=== PATIENT | female | born 1965 | race Caucasian/White ===

== ENCOUNTER 2016-10-08 20:00 | Observation (INO) | payer BC ==
[2016-10-08] MEDS ORDERED: ASPIRIN 81 MG TABLET, CHEWABLE PO ONE (20:05)
--- NOTE | 2016-10-08 20:09 | ER Document Report ---
ED Medical Screen (RME) - General Stated Complaint: CHEST PAIN Time seen by provider: 20:06 Mode of Arrival: Ambulatory Information source: Patient Notes: 20-year-old nondiabetic, nonhypertensive, non-hyperlipidemic, non-smoker female with left sided retrosternal chest pain that radiates down her left arm and into her left jaw since yesterday morning. It is intermittent. Episodes last 15 or 20 minutes. The pain is worse with exertion or activity. Chest pain is 5 /5 at this time. No fever or chills. Some cough. TRAVEL OUTSIDE OF THE [place] IN LAST 30 DAYS: No - Related Data Allergies/Adverse Reactions: oxycodone HCl [From Percocet] Allergy (Verified 06/18/13 11:48) Past Medical History - Past Medical History Cardiac Medical History: Reports: Hx Hypercholesterolemia Denies: Hx Coronary Artery Disease, Hx Heart Attack, Hx Hypertension Pulmonary Medical History: Reports: Hx Pneumonia - yrs ago Denies: Hx Asthma - being ruled out;may be panic attacks, Hx Bronchitis, Hx COPD Neurological Medical History: Denies: Hx Cerebrovascular Accident, Hx Seizures Renal/ Medical History: Reports: Hx Kidney Stones GI Medical History: Reports: Hx Hiatal Hernia Musculoskeltal Medical History: Reports Hx Arthritis - Knees, hands, feet, neck Past Surgical History: Reports: Hx Hysterectomy - Immunizations Hx Diphtheria, Pertussis, Tetanus Vaccination: Yes
[2016-10-08 21:04] LABS: ABSOLUTE EOSINOPHILS # (AUTO) 0.1 10^3/uL (0.0-0.6); ABSOLUTE LYMPHOCYTES (AUTO) 2.2 10^3/uL (0.5-4.7); ABSOLUTE MONOCYTES (AUTO) 0.7 10^3/uL (0.1-1.4); ABSOLUTE NEUT (AUTO) 4.9 10^3/uL (1.7-8.2); BASOPHILS % (AUTO) 0.3 % (0-2); EOSINOPHILS % (AUTO) 0.7 % (0-6); HEMATOCRIT 36.1 % (36.0-47.0); HGB HCT DIFFERENCE -0.1; LYMPHOCYTES % (AUTO) 27.8 % (13-45); MEAN CORPUSCULAR HEMOGLOBIN 26.7 pg (27.0-33.4); MEAN CORPUSCULAR HGB CONC 33.2 g/dL (32.0-36.0); MEAN CORPUSCULAR VOLUME 81 fl (80-97); MONOCYTES % (AUTO) 8.7 % (3-13); RED BLOOD COUNT 4.48 10^6/uL (3.72-5.28); SEGMENTED NEUTROPHILS % (AUTO) 62.5 % (42-78); WHITE BLOOD COUNT 7.8 10^3/uL (4.0-10.5)
[2016-10-08 21:12] LABS: ALANINE AMINOTRANSFERASE 24 U/L (9-52); ALBUMIN 3.5 g/dL (3.5-5.0); ALKALINE PHOSPHATASE 103 U/L (38-126); ANION GAP 11 (5-19); ASPARTATE AMINO TRANSFERASE 28 U/L (14-36); BILIRUBIN,TOTAL 0.2 mg/dL (0.2-1.3); BLOOD UREA NITROGEN 22 mg/dL (7-20); CALCIUM 9.2 mg/dL (8.4-10.2); CARBON DIOXIDE 26 mmol/L (22-30); CHLORIDE 105 mmol/L (98-107); CREATINE KINASE 128 U/L (30-135); CREATININE RESULT 0.68 mg/dL (0.52-1.25); GLUCOSE 114 mg/dL (75-110); POTASSIUM 3.6 mmol/L (3.6-5.0); SODIUM 142.1 mmol/L (137-145); TOTAL PROTEIN 6.2 g/dL (6.3-8.2)
[2016-10-08 21:20] LABS: CREATINE KINASE MB 1.47 ng/mL (<4.55)
[2016-10-08 21:21] LABS: TROPONIN I < 0.012 ng/mL
--- NOTE | 2016-10-08 22:20 | ER Document Report ---
ED General - General Chief Complaint: Chest Pain Stated Complaint: CHEST PAIN Mode of Arrival: Ambulatory Notes: Patient is 50-year-old female presents for complaint of feeling unwell and having chest pain radiates into her left jaw and into her left shoulder. She also some pain into her left upper abdomen. Some nausea. No vomiting. No fevers. She becomes short of breath when the pain comes about. She says it's worse when she exerts herself. She does not smoke. She does have a family history of coronary disease. She said both her sister and her father had heart attacks. She has no other complaints at this time. No recent traumas or injuries. No recent infections. TRAVEL OUTSIDE OF THE [place] IN LAST 30 DAYS: No - Related Data Allergies/Adverse Reactions: oxycodone HCl [From Percocet] Allergy (Verified 06/18/13 11:48) Past Medical History - General Information source: Patient - Social History Smoking Status: Never Smoker Chew tobacco use (# tins/day): No Frequency of alcohol use: None Drug Abuse: None Family History: Reviewed & Not Pertinent Patient has suicidal ideation: No Patient has homicidal ideation: No - Past Medical History Cardiac Medical History: Reports: Hx Hypercholesterolemia Denies: Hx Coronary Artery Disease, Hx Heart Attack, Hx Hypertension Pulmonary Medical History: Reports: Hx Pneumonia - yrs ago Denies: Hx Asthma - being ruled out;may be panic attacks, Hx Bronchitis, Hx COPD Neurological Medical History: Denies: Hx Cerebrovascular Accident, Hx Seizures Renal/ Medical History: Reports: Hx Kidney Stones GI Medical History: Reports: Hx Hiatal Hernia Musculoskeltal Medical History: Reports Hx Arthritis - Knees, hands, feet, neck Past Surgical History: Reports: Hx Hysterectomy - Immunizations Hx Diphtheria, Pertussis, Tetanus Vaccination: Yes Review of Systems - Review of Systems Notes: My Normal Review Basic REVIEW OF SYSTEMS: CONSTITUTIONAL : Denies fever, chills, or sweats. Denies recent illness. EENT: Denies eye, ear, throat, or mouth pain or symptoms. Denies nasal or sinus congestion. CARDIOVASCULAR: Some chest pain RESPIRATORY: Denies cough, cold, or chest congestion. Denies shortness of breath, difficulty breathing, or wheezing. GASTROINTESTINAL: Mild upper abdominal pain. Denies nausea, vomiting, or diarrhea. Denies constipation. Last BM: MUSCULOSKELETAL: Denies neck or back pain or joint pain or swelling. SKIN: Denies rash or skin lesions. NEUROLOGICAL: Denies altered mental status or loss of consciousness. Denies headache. Denies weakness or paralysis or loss of use of either side. Denies problems with gait or speech. Denies sensory or motor loss. PSYCHIATRIC: History of anxiety but says this feels different than typical panic attack. ALL OTHER SYSTEMS REVIEWED AND NEGATIVE. Physical Exam - Vital signs Vitals: Pulse Ox 100 10/08/16 22:09 - Notes Notes: General Appearance: Well nourished, alert, cooperative, no acute distress, no obvious discomfort. Well-appearing. Vitals: reviewed, See vital signs table. Head: no swelling or tenderness to the head Eyes: PERRL, EOMI, Conjuctiva clear Mouth: No decreasd moisture Lungs: No wheezing, No rales, No rhonci, No accessory muscle use, good air exchange bilaterally. Heart: Normal rate, Regular rythm, No murmur, no rub Abdomen: Normal BS, soft, No rigidity, no reproducible abdominal tenderness with palpation, No guarding, no rebound, no abdominal masses, no organomegaly Extremities: strength 5/5 in all extremities, good pulses in all extremities, no swelling or tenderness in the extremities, no edema. Skin: warm, dry, appropriate color, no rash Neuro: speech clear, oriented x 3, normal affect, responds appropriately to questions. Course - Vital Signs Vital signs: Temp Pulse Resp BP Pulse Ox 15 104/75 98 10/09/16 02:01 10/09/16 02:01 10/09/16 02:01 - Laboratory Result Diagrams: 10/08/16 20:41 10/08/16 20:41 Laboratory results interpreted by me: 10/08/16 10/08/16 20:41 20:41 MCH 26.7 L BUN 22 H Glucose 114 H Total Protein 6.2 L - EKG Interpretation by Me Additional EKG results interpreted by me: 10/08/16 22:19 EKG is reviewed and interpreted by me. EKG shows normal sinus rhythm with rate of [address] segment elevation or depression. No ischemic T wave inversions. LA interval, QRS duration, QTC intervals are within normal range. Old EKG for comparison is from 06/18/2013. - Transfer of Care Notes: 10/09/16 03:07 Patient does have family history of cardiac disease. Her pain is rating to left on left shoulder and is worse with exertion and therefore I do have to be concerned that her pain could be related to coronary disease. Initial cardiac enzymes and EKG are negative. I did speak with the hospitalist who agrees in that the patient. Patient is currently chest pain-free. Patient is agreeable to admission. Dictation of this chart was performed using voice recognition software; therefore, there may be some unintended grammatical errors. Discharge - Discharge Clinical Impression: Chest pain Qualifiers: Chest pain type: unspecified Qualified Code(s): R07.9 - Chest pain, unspecified Disposition: ADMITTED INPATIENT Admitting Provider: Hospitalist Unit Admitted: Telemetry
--- NOTE | 2016-10-08 22:57 | EKG REPORT ---
SEVERITY:- OTHERWISE NORMAL ECG - INCOMPLETE ANALYSIS DUE TO MISSING DATA IN PRECORDIAL LEAD(S) SINUS RHYTHM BORDERLINE LEFT AXIS DEVIATION : Confirmed by: Zeus Montenegro 08-Oct-2016 22:56:58
[2016-10-09] MEDS ORDERED: NITROGLYCERIN 2% OINTMENT 1 GM PACKET TP ONE (00:59)
[2016-10-09] MEDS ORDERED: DIAZEPAM 5 MG TABLET PO PRN (01:55)
[2016-10-09] MEDS ORDERED: NITROGLYCERIN 0.4 MG/TAB 25 TAB/BOTTLE SL PRN (01:55)
[2016-10-09 02:57] LABS: CREATINE KINASE MB 1.18 ng/mL (<4.55)
--- NOTE | 2016-10-09 02:59 | PDOC H&P ---
History of Present Illness Admission Date/PCP: 10/09/16 01:55 MULU CAPUTO MD Patient complains of: Chest pain with radiation to left arm and jaw History of Present Illness: CHIDI CARRION is a 50 year old female with a past medical history of anxiety osteoarthritis on hormone replacement who is in her usual state of health until approximately 72 hours prior to presentation having both sharp and dull pain to the left side of her chest which radiates to both the left jaw and arm and is intermittent in nature associated with opiate rotations, shortness of breath, nausea and vomiting of gastric content though occurring at rest. She is unable to identify alleviating or exacerbating factors she does admit some social stressors but states she is not currently exceptionally stressed and this is inconsistent with previous episode of panic attack. She denies new medications , recent cardiac stress test and is referred to the hospitalist for admission with an otherwise unremarkable workup. Past Medical History Cardiac Medical History: Reports: Hyperlipidema Denies: Coronary Artery Disease, Myocardial Infarction, Hypertension Pulmonary Medical History: Reports: Pneumonia - yrs ago Denies: Asthma - being ruled out;may be panic attacks, Bronchitis, Chronic Obstructive Pulmonary Disease (COPD) Neurological Medical History: Denies: Seizures GI Medical History: Reports: Hiatal Hernia Musculoskeltal Medical History: Reports: Arthritis - Knees, hands, feet, neck Hematology: Reports: Anemia - yrs ago Past Surgical History Past Surgical History: Reports: Hysterectomy Social History Information Source: Patient, Relative Lives with: Family Smoking Status: Never Smoker Frequency of Alcohol Use: None Drugs: None Hx Prescription Drug Abuse: No - Advance Directive Resuscitation Status: Full Code Family History Family History: CAD Parental Family History Reviewed: Yes Children Family History Reviewed: Yes Sibling(s) Family History Reviewed.: Yes Medication/Allergy Home Medications: Estrogens,Conjugated [Premarin 1.25 Mg Tablet] 1.25 mg PO DAILY 09/03/12 Albuterol Sulfate [Ventolin Hfa] 2 puff IH Q4H PRN 11/24/13 Multivitamins with Iron [One Daily Multivitamin] 1 tab PO DAILY 11/24/13 Simvastatin 40 mg PO DAILY 11/24/13 Hydrocodone/Acetaminophen [[place] 5-325 mg Tablet] 1 - 2 tab PO ASDIR #10 tablet 11/12/15 Prednisone [Deltasone 10 mg Tablet] 10 mg PO ASDIR PRN #21 tablet 11/12/15 Allergies/Adverse Reactions: oxycodone HCl [From Percocet] Allergy (Verified 06/18/13 11:48) Review of Systems Constitutional: ABSENT: chills, fever(s), headache(s), weight gain, weight loss Eyes: ABSENT: visual disturbances Ears: ABSENT: hearing changes Cardiovascular: ABSENT: chest pain, dyspnea on exertion, edema, orthropnea, palpitations Respiratory: ABSENT: cough, hemoptysis Gastrointestinal: ABSENT: abdominal pain, constipation, diarrhea, hematemesis, hematochezia, nausea, vomiting Genitourinary: ABSENT: dysuria, hematuria Musculoskeletal: ABSENT: joint swelling Integumentary: ABSENT: rash, wounds Neurological: ABSENT: abnormal gait, abnormal speech, confusion, dizziness, focal weakness, syncope Psychiatric: ABSENT: anxiety, depression, homidical ideation, suicidal ideation Endocrine: ABSENT: cold intolerance, heat intolerance, polydipsia, polyuria Hematologic/Lymphatic: ABSENT: easy bleeding, easy bruising Physical Exam Vital Signs: Temp Pulse Resp BP Pulse Ox 15 104/75 98 10/09/16 02:01 10/09/16 02:01 10/09/16 02:01 General appearance: PRESENT: no acute distress, cooperative, obese Head exam: PRESENT: atraumatic, normocephalic Eye exam: PRESENT: conjunctiva pink, EOMI, PERRLA. ABSENT: scleral icterus Ear exam: PRESENT: normal external ear exam Mouth exam: PRESENT: moist, tongue midline Neck exam: ABSENT: carotid bruit, JVD, lymphadenopathy, thyromegaly Respiratory exam: PRESENT: clear to auscultation anthony. ABSENT: rales, rhonchi, wheezes Cardiovascular exam: PRESENT: RRR, +S1, +S2. ABSENT: diastolic murmur, gallop, rubs, systolic murmur, tachycardia Pulses: PRESENT: normal dorsalis pedis pul GI/Abdominal exam: PRESENT: normal bowel sounds, soft. ABSENT: distended, guarding, mass, organolmegaly, rebound, tenderness Rectal exam: PRESENT: deferred Musculoskeletal exam: PRESENT: other - Pain over left-sided chest which is reproducible but dull in Nature and not the pain for which she seeks evaluation Neurological exam: PRESENT: alert, awake, oriented to person, oriented to place , oriented to time, oriented to situation, CN II-XII grossly intact. ABSENT: motor sensory deficit Psychiatric exam: PRESENT: flat affect Focused psych exam: ABSENT: catatonic, delusional, euphoric, flight of ideas Skin exam: PRESENT: dry, intact, warm. ABSENT: cyanosis, rash Results Impressions: Chest X-Ray 10/08/16 20:06 IMPRESSION: NO ACUTE RADIOGRAPHIC FINDING IN THE CHEST. Assessment & Plan - Diagnosis (1) Chest pain Qualifiers: Chest pain type: unspecified Qualified Code(s): R07.9 - Chest pain, unspecified Is this a current diagnosis for this admission?: YesPlan: Multifactorial Chest pains with atypical features for cardiac origin however she has strong family history, I'll evaluate for acute coronary syndrome and risk factors for coronary artery disease, a Cardiolite stress test and treat symptomatically. (2) Anxiety and depression Is this a current diagnosis for this admission?: YesPlan: Consider SSRI with outpatient mental health follow-up (3) Hormone replacement therapy Is this a current diagnosis for this admission?: YesPlan: Consider discontinuation - Time Time Spent: 30 to 50 Minutes
[2016-10-09 03:02] LABS: TROPONIN I < 0.012 ng/mL
[2016-10-09] MEDS ORDERED: ATORVASTATIN CALCIUM 80 MG TABLET PO ONE (04:30)
[2016-10-09] MEDS: HEPARIN SOD (PORCINE) 5,000 UNIT/ML 1 ML SYRINGE SUBCUT SCH ×3 (07:49→21:09)
--- NOTE | 2016-10-09 08:07 | EKG REPORT ---
SEVERITY:- OTHERWISE NORMAL ECG - SINUS RHYTHM BORDERLINE LEFT AXIS DEVIATION : Confirmed on behalf of: Zeus Montenegro 09-Oct-2016 08:07:09
[2016-10-09 08:21] LABS: CHOLESTEROL 176.66 mg/dL (0-200); Direct HDL 44 mg/dL (>40); TRIGLYCERIDES 95 mg/dL (<150)
[2016-10-09 08:33] LABS: DIRECT LDL 117 mg/dL (<100)
[2016-10-09 08:34] LABS: CREATINE KINASE MB 0.92 ng/mL (<4.55)
[2016-10-09 08:35] LABS: TROPONIN I < 0.012 ng/mL
[2016-10-09] MEDS: DOCUSATE SODIUM 100 MG CAPSULE PO SCH ×2 (10:26→17:15)
[2016-10-09] MEDS: ENALAPRIL MALEATE 2.5 MG TABLET PO SCH (10:26)
[2016-10-09] MEDS ORDERED: AMINOPHYLLINE INJ/PF 250 MG/10 ML SDV IV ONE (11:00)
[2016-10-09] MEDS ORDERED: REGADENOSON INJ 0.4 MG/5 ML DISP.SYRIN IV ONE (11:00)
--- NOTE | 2016-10-09 11:50 | DRAGON STRESS TEST REPORT ---
INTRAVENOUS LEXISCAN CARDIOLITE STRESS TEST USING SINGLE PHOTON EMMISION COMPUTERIZED TOMOGRAPHIC. DATE OF PROCEDURE: October 09, 2016 INDICATION : Chest pain CARDIAC RISK FACTORS: Dyslipidemia, family history of CAD RESTING EKG: Sinus rhythm, without any baseline ST-T wave changes STRESS EKG: No significant changes noted with LexiScan bolus REASON FOR TERMINATION: Protocol. PROCEDURE REPORT: Baseline heart rate 83 beats per minute with blood pressure of 111/65. Patient had no significant complaints. Heart rate at 2 minutes post bolus 104 with a blood pressure of 133/70. 3 minutes post bolus heart rate 98 with blood pressure of and 134/66. No significant EKG changes were noted. Patient had no significant complaints during the procedure or postprocedure. CONCLUSIONS: Normal EKG and hemodynamic response to IV LexiScan. NUCLEAR DATA: At rest the patient was given 14.08 millicuries of technetium 99 sestamibi injected intravenously. As per protocol rest gated SPECT images were obtained. Subsequently the patient was given intravenous LexiScan at a dose of 0.4 mg in 5 mL intravenously, followed by flush with normal saline. Subsequently the stress dose of 43.8 millicuries of technetium 99 sestamibi was injected intravenously. As per protocol stress gated images were obtained. NUCLEAR INTERPRETATION: Both raw and processed data were used for interpretation. Visual, qualitative, computer-generated quantitative data was used. There was good myocardial uptake of technetium compound. Motion artifact and soft tissue attenuations were noted. Increased visceral uptake was noted. No definitive areas of transient perfusion defect noted. No definitive areas of fixed perfusion defect or scars noted. EKG gated imaging showed LV EF at 59 %, rest and stress gated EF similar visually. T. I D. ratio was 1.23. Visually felt to be WNL and not significant. Lung heart ratio noted to be within normal limits 0.28. No significant extracardiac and abnormal radiotracer activities were noted. RV free wall uptake was noted to be WNL. IMPRESSION: Also refer to comments under nuclear interpretation. Also test results needs to be interpreted in the context of pretest probability. 1. There is no definitive scintigraphic evidence of LexiScan induced myocardial ischemia. 2. There is no definitive scintigraphic evidence of myocardial infarction/scar. 3. EKG gated imaging shows left ejection fraction of approximately 59 %. 4. Clinical correlation requested as occasionally single vessel disease or balanced ischemia could be missed. In approximately 10% of the cases Lexiscan may not cause adequate vasodilatory stress. RECOMMENDATIONS: Aggressive risk factor modification, medical therapy. Clinical correlation with echocardiogram derived ejection fraction. Inability to exercise by itself can lead to increased cardiovascular event risks. Consider cardiology consultation if clinically indicated. I AM AVAILABLE FOR CARDIOLOGY CONSULTATION AND FOLLOWUP IF REQUESTED BY PMD Zeus Montenegro M.D., [facility] [employer] costing manager, Board certified in cardiovascular diseases, Nuclear cardiology, Echocardiography Cardiac CT and cardiac MRI Ph. [phone] [facility]
[2016-10-09] MEDS ORDERED: METOCLOPRAMIDE HCL ORAL SOLN 10 MG/10 ML UDCUP PO ONE (14:30)
[2016-10-09] MEDS ORDERED: MAG HYDROX/AL HYDROX/SIMETH SUSP 30 ML UDCUP PO ONE (14:30)
[2016-10-09] MEDS ORDERED: LIDOCAINE 2% VISCOUS SOLN 20 ML UDCUP PO ONE (14:30)
[2016-10-09] MEDS ORDERED: LACTOBACILLUS ACIDOPHILUS 250 MG TAB PO ONE (14:30)
[2016-10-09 14:56] LABS: CREATINE KINASE MB 0.62 ng/mL (<4.55)
[2016-10-09 15:03] LABS: TROPONIN I < 0.012 ng/mL
--- NOTE | 2016-10-09 15:41 | PDOC CONSULTATION ---
Consultation Consult Date: 10/09/16 Attending physician:: HIEU COTE Consult reason:: Chest pain History of Present Illness Admission Date/PCP: 10/09/16 01:55 MULU CAPUTO MD Patient complains of: Chest pain History of Present Illness: CHIDI CARRION is a 50 year old female with a past medical history of anxiety , osteoarthritis on hormone replacement who is in her usual state of health until approximately 72 hours prior to presentation having both sharp and dull pain to the left side of her chest which radiates to both the left jaw and arm and is intermittent in nature associated with shortness of breath, nausea and vomiting of gastric content though occurring at rest. She is unable to identify alleviating or exacerbating factors she does admit some social stressors but states she is not currently exceptionally stressed and this is inconsistent with previous episode of panic attack. She denies new medications , recent cardiac stress test and is referred to the hospitalist for admission with an otherwise unremarkable workup. Patient history was reviewed. Patient claims that she works at [employer] in the [employer] department and has to carry heavy loads. She claims the chest pain is aggravated by taking a deep breath, sometimes with twisting and turning motion of the torso. Patient also describes history of gallstones and kidney stones. She does give strong family history of premature coronary artery disease with father dying of myocardial infarctions in his 50s. A questionable history of her sister dying of myocardial infarction in late 20s but this is not confirmed. Past Medical History Cardiac Medical History: Reports: Hyperlipidema Denies: Congestive Heart Failure, Coronary Artery Disease, Myocardial Infarction, Hypertension Pulmonary Medical History: Reports: Pneumonia - yrs ago Denies: Asthma - being ruled out;may be panic attacks, Bronchitis, Chronic Obstructive Pulmonary Disease (COPD), Tuberculosis Neurological Medical History: Denies: Seizures Renal/ Medical History: Denies: End Stage Renal Disease GI Medical History: Reports: Hiatal Hernia Denies: Cirrhosis, Gastroesophageal Reflux Disease Musculoskeltal Medical History: Reports: Arthritis - Knees, hands, feet, neck Psychiatric Medical History: Denies: Bipolar Disorder, Depression Hematology: Reports: Anemia - yrs ago Past Surgical History Past Surgical History: Reports: Hysterectomy Social History Information Source: Patient Lives with: Family Smoking Status: Former Smoker Frequency of Alcohol Use: None Drugs: None Hx Prescription Drug Abuse: No - Advance Directive Resuscitation Status: Full Code Family History Family History: CAD Parental Family History Reviewed: Yes Children Family History Reviewed: Yes Sibling(s) Family History Reviewed.: Yes - Positive family history of premature coronary artery disease Medication/Allergy Allergies/Adverse Reactions: oxycodone HCl [From Percocet] Allergy (Verified 06/18/13 11:48) Review of Systems Review of Systems: Please see history of present illness and past medical history as wall. Constitutional: No fever or chills reported. Head : No recent chronic headaches, recent head injury. Eyes: No recent eye pain, diplopia, redness, discharge, acute visual changes. Ears: No recent chronic ear pain, acute hearing loss, ear discharge. Oral cavity: No recent ulcerations, bleeding, oral cavity discomfort. Neck: No recent acute neck pain reported. Hematologic: No recent easy bruising or bleeding or hematologic malignancy reported. Lymphatic: No recent lymphatic malignancy, chronic lymphadenopathy reported yet Cardiovascular system review: See history of present illness. Respiratory system review: No recent chronic cough, hemoptysis, blood clots in the lungs reported. Mild Shortness of breath on exertion Gastrointestinal system review: Negative for any recent acute or chronic abdominal pain, hematemesis, melena, recent change in bowel habits. Genitourinary system review: No recent acute or chronic hematuria, flank pain, UTI etc. reported. Skin system review: Negative for any recent abnormal bruising, no rash, no pruritus reported. Neurologic: No prior history of strokes, mini strokes, seizure disorder. Psychologic: No history of major psychosis or depression reported. Musculoskeletal: Minor aches and pains reported. No acute joint swelling reported. Endocrine: No recent polyuria, polydipsia, recent heat or cold intolerance. Physical Exam Vital Signs: Temp Pulse Resp BP Pulse Ox 97.7 F 72 14 108/61 99 10/09/16 11:41 10/09/16 11:41 10/09/16 11:41 10/09/16 11:41 10/09/16 11:41 Intake & Output 10/08/16 10/09/16 10/10/16 06:59 06:59 06:59 Intake Total 0 Output Total 1 Balance -1 Weight 93.3 kg Exam: GENERAL: well-nourished and in no acute distress. Alert and oriented x3 HEAD: Atraumatic, normocephalic. EYES: Pupils equal round and reactive to light, extraocular movements intact, sclera anicteric, conjunctiva are normal. ENT: TMs normal, nares patent, oropharynx clear without exudates. Moist mucous membranes. No oral ulcerations or bleeding gums noted NECK: supple without lymphadenopathy. Trachea is central. No cervical or axillary lymphadenopathy noted. Carotids are 2+, JVD WNL LUNGS: Respiration seems nonlabored, no significant accessory muscle action noted. Breath sounds clear to auscultation bilaterally and equal. No wheezes rales or rhonchi. No significant dullness noted on percussion. Chest wall tenderness noted CHEST: Palpation of the chest wall shows chest wall tenderness but no other significant abnormalities. HEART: [place] [employer], No PSH, 1/6 ALEXIS aortic area, 1/6 norton systolic murmur mitral area, no rubs, no gallops. ABDOMEN: Soft, no significant tenderness appreciated, normoactive bowel sounds. No guarding, no rebound. No rigidity noted . No masses appreciated. EXTREMITIES: Pedal pulses are 1-2+, no calf tenderness noted. No clubbing or cyanosis.trace to 1+ pedal edema noted NEUROLOGICAL: Focused neurological exam showed no significant neurologic deficit. Normal speech, no focal weakness appreciated. PSYCH: Normal mood, normal affect. Judgment and insight within normal limits. SKIN: No significant ecchymosis, rash, ulcerations or signs of pruritus noted. MUSCULOSKELETAL EXAM: No significant joint swelling noted. Results Laboratory Results: 10/09/16 10/09/16 02:20 07:28 Triglycerides 95 Cholesterol 176.66 LDL Cholesterol Direct 117 H VLDL Cholesterol 19.0 HDL Cholesterol 44 TSH 0.76 10/09/16 10/09/16 10/09/16 02:20 07:28 14:11 CK-MB (CK-2) 1.18 0.92 0.62 Troponin I < 0.012 < 0.012 < 0.012 EKG Comments: 12-lead EKG shows sinus rhythm, no acute ST-T wave changes are noted. Impressions: Chest X-Ray 10/08/16 20:06 IMPRESSION: NO ACUTE RADIOGRAPHIC FINDING IN THE CHEST. Chest/Abdomen CTA 10/09/16 00:00 IMPRESSION: NORMAL CTA OF THE CHEST. NO PULMONARY EMBOLI. Assessment & Plan - Diagnosis (1) Chest pain Qualifiers: Chest pain type: unspecified Qualified Code(s): R07.9 - Chest pain, unspecified Is this a current diagnosis for this admission?: YesPlan: Patient had a nuclear stress test which was negative for significant transient perfusion defect or fixed defect. Patient subsequently also had a CTA of the chest which was negative for pulmonary embolism. Also no coronary calcifications were noted. All EKGs and cardiac enzymes has been negative. Patient does have reproducible chest pain although mild. Feel that patient chest discomfort is mostly musculoskeletal. There is low suspicion of cardiac ischemic pain as cause of chest pain. Patient however will benefit from risk factor modification. (2) Dyslipidemia Is this a current diagnosis for this admission?: YesPlan: Patient describes history of dyslipidemia in the past. Currently LDL is mildly elevated. Agree with statin therapy (3) Anxiety and depression Is this a current diagnosis for this admission?: YesPlan: Patient seems anxious. Recommend SSRI agent if clinically indicated. (4) Obesity Qualifiers: Obesity severity: unspecified obesity severity Is this a current diagnosis for this admission?: YesPlan: Patient has been encouraged in weight loss. Discussed improvement in reflux symptoms and also snoring with weight loss. (5) Gastroesophageal reflux disease Qualifiers: Esophagitis presence: esophagitis presence not specified Qualified Code(s): K21.9 - Gastro-esophageal reflux disease without esophagitis Is this a current diagnosis for this admission?: YesPlan: May consider H2 blockers or proton pump inhibitors. (6) Sleep disorder Is this a current diagnosis for this admission?: YesPlan: Patient gives history of loud snoring which was confirmed by her boyfriend and other family members. Patient has history of reflux. Patient will benefit from a sleep study. This can be scheduled as an outpatient. - Notes Notes: CODE STATUS was discussed, patient remains full code. Surrogate decision-maker patient's son. Multiple medical problems were addressed. - Time Time Spent: 30 to 50 Minutes - More than 50% of the time spent coordinating care , discussing management plans with involved caregivers. Management plans discussed with involved personnels. Medical decision making was of moderate complexity.
[2016-10-09] MEDS ORDERED: CYCLOBENZAPRINE HCL 10 MG TABLET PO ONE (16:17)
[2016-10-09] MEDS ORDERED: CYCLOBENZAPRINE HCL 10 MG TABLET PO PRN (16:17)
--- NOTE | 2016-10-09 16:35 | PDOC PROGRESS REPORT ---
Subjective Progress Note for:: 10/09/16 Subjective:: The patient was seen earlier today on rounds. The patient denies any nausea, vomiting, diarrhea, shortness of breath, dizziness, heart palpitations, fevers, or chills. The patient states that she has replication of symptoms during her stress test. Consult cardiology for their input. The patient has remained afebrile. Blood pressures have been in a good range. When prompted the patient voices no other concerns at this time. Review of systems: The rest of the review of systems is negative. Physical Exam Vital Signs: Temp Pulse Resp BP Pulse Ox 97.7 F 72 14 108/61 99 10/09/16 11:41 10/09/16 11:41 10/09/16 11:41 10/09/16 11:41 10/09/16 11:41 Intake & Output 10/07/16 10/08/16 10/09/16 23:59 23:59 23:59 Intake Total 0 Output Total 1 Balance -1 Weight 93.3 kg General appearance: PRESENT: no acute distress, cooperative, well-developed, well-nourished Head exam: PRESENT: atraumatic, normocephalic Eye exam: PRESENT: conjunctiva pink, EOMI, PERRLA. ABSENT: scleral icterus Ear exam: PRESENT: normal external ear exam Mouth exam: PRESENT: moist, tongue midline Neck exam: ABSENT: carotid bruit, JVD, lymphadenopathy, thyromegaly Respiratory exam: PRESENT: clear to auscultation anthony, other - Chest wall tender to palpation. ABSENT: rales, rhonchi, wheezes Cardiovascular exam: PRESENT: RRR. ABSENT: diastolic murmur, rubs, systolic murmur Pulses: PRESENT: normal dorsalis pedis pul Vascular exam: PRESENT: normal capillary refill GI/Abdominal exam: PRESENT: normal bowel sounds, soft. ABSENT: distended, guarding, mass, organolmegaly, rebound, tenderness Rectal exam: PRESENT: deferred Extremities exam: PRESENT: full ROM. ABSENT: calf tenderness, clubbing, pedal edema Neurological exam: PRESENT: alert, awake, oriented to person, oriented to place , oriented to time, oriented to situation, CN II-XII grossly intact. ABSENT: motor sensory deficit Psychiatric exam: PRESENT: appropriate affect, normal mood. ABSENT: homicidal ideation, suicidal ideation Skin exam: PRESENT: dry, intact, warm. ABSENT: cyanosis, rash Results Laboratory Results: 10/09/16 10/09/16 02:20 07:28 Triglycerides 95 Cholesterol 176.66 LDL Cholesterol Direct 117 H VLDL Cholesterol 19.0 HDL Cholesterol 44 TSH 0.76 10/09/16 10/09/16 10/09/16 02:20 07:28 14:11 CK-MB (CK-2) 1.18 0.92 0.62 Troponin I < 0.012 < 0.012 < 0.012 Impressions: Chest X-Ray 10/08/16 20:06 IMPRESSION: NO ACUTE RADIOGRAPHIC FINDING IN THE CHEST. Chest/Abdomen CTA 10/09/16 00:00 IMPRESSION: NORMAL CTA OF THE CHEST. NO PULMONARY EMBOLI. Assessment & Plan - Diagnosis (1) Chest pain Qualifiers: Chest pain type: unspecified Qualified Code(s): R07.9 - Chest pain, unspecified Is this a current diagnosis for this admission?: YesPlan: Will repeat cardiac enzymes in the a.m. To appreciate cardiology input with this. The patient has been given GI cocktail also given muscle relaxer. And follow. (2) Anxiety and depression Is this a current diagnosis for this admission?: Yes (3) Dyslipidemia Is this a current diagnosis for this admission?: Yes (4) Gastroesophageal reflux disease Qualifiers: Esophagitis presence: esophagitis presence not specified Qualified Code(s): K21.9 - Gastro-esophageal reflux disease without esophagitis Is this a current diagnosis for this admission?: Yes (5) Hormone replacement therapy Is this a current diagnosis for this admission?: Yes (6) Obesity Qualifiers: Obesity severity: unspecified obesity severity Is this a current diagnosis for this admission?: Yes (7) Sleep disorder Is this a current diagnosis for this admission?: Yes - Time Time Spent with patient: on this visit including assessment, plan, physical examination, daily meeting, specialty collaboration, and patient education is 60 minutes. Time Spent with patient: 35 or more minutes Medications reviewed and adjusted accordingly: Yes Anticipated discharge: Home Within: within 24 hours
[2016-10-09] MEDS: LACTOBACILLUS ACIDOPHILUS 250 MG TAB PO SCH (17:15)
[2016-10-09] MEDS ORDERED: ATORVASTATIN CALCIUM 80 MG TABLET PO SCH (22:00)
[2016-10-10] MEDS: HEPARIN SOD (PORCINE) 5,000 UNIT/ML 1 ML SYRINGE SUBCUT SCH (05:56)
[2016-10-10 08:16] VITALS: BP 104/56
--- NOTE | 2016-10-10 09:17 | XCELERA REPORT ---
[address] [address] Transthoracic Echocardiogram Report Name: CHIDI CARRION Age: 50 yrs Gender: Female : 1965 Patient Status: Inpatient Patient Location: [id number] Study Date: 10/09/2016 05:26 PM Height: 61 in Weight: 205 lb BSA: 1.9 m2 Procedure: A complete two-dimensional transthoracic echocardiogram was performed (2D, M-mode, spectral and color flow Doppler). The study was technically difficult with many images being suboptimal in quality. Reason For Study: chest pain Ordering Physician: ZEUS BARAJAS Performed By: Carmen Garza Interpretation Summary The left ventricular ejection fraction is normal. There is mild concentric left ventricular hypertrophy. Doppler measurements suggest normal left ventricular diastolic function The left ventricle is grossly normal size. Wall motion cannot be accurately commented on, but no definite regional wall motion abnormalities noted. The right ventricular systolic function is normal. The left atrial size is normal. The right atrium is normal in size There is a trace to mild amount of mitral regurgitation There is no mitral valve stenosis. No aortic regurgitation is present. There is no aortic valve stenosis There is a trace to mild amount of tricuspid regurgitation There is mild pulmonary hypertension by echo Right ventricular systolic pressure is estimated to be elevated at 30- 40mmHg. There is no pericardial effusion. MMode/2D Measurements \T\ Calculations RVDd: 3.7 cm LVIDd: 4.7 cmFS: 38.2 % Ao root diam: 2.7 cm IVSd: 1.2 cm LVIDs: 2.9 cmEDV(Teich): 100.3 ml LVPWd: 1.1 cmESV(Teich): 31.6 ml Ao root area: 5.9 cm2 EF(Teich): 68.5 % LA dimension: 3.8 cm LVOT diam: 1.9 cm LVOT area: 2.8 cm2 Doppler Measurements \T\ Calculations MV E max parrish: MV P1/2t max parrish: Ao V2 max: LV V1 max P.5 cm/sec 114.0 cm/sec 168.9 cm/sec 4.6 mmHg MV A max parrish: MV P1/2t: 67.6 msec Ao max PG: LV V1 max: 68.1 cm/sec MVA(P1/2t): 3.3 cm2 11.4 mmHg 107.4 cm/sec MV E/A: 1.7 MV dec slope: BON(V,D): 1.8 cm2 493.9 cm/sec2 MV dec time: 0.23 sec PA V2 max: TR max parrish: 77.0 cm/sec 207.7 cm/sec PA max PG: TR max P.3 mmHg 2.4 mmHg Left Ventricle The left ventricle is grossly normal size. There is mild concentric left ventricular hypertrophy. The left ventricular ejection fraction is normal. Doppler measurements suggest normal left ventricular diastolic function. Wall motion cannot be accurately commented on, but no definite regional wall motion abnormalities noted. Right Ventricle Borderline right ventricular enlargement. There is normal right ventricular wall thickness. The right ventricular systolic function is normal. Atria The right atrium is normal in size. The left atrial size is normal. Interarterial septum not well visualized and not well dopplered. Cannot comment on ASD/PFO presence. Mitral Valve The mitral valve is grossly normal. There is no mitral valve stenosis. There is a trace to mild amount of mitral regurgitation. Aortic Valve The aortic valve is grossly normal. There is no aortic valve stenosis. No aortic regurgitation is present. Tricuspid Valve The tricuspid valve is not well visualized, but is grossly normal. There is no tricuspid stenosis. There is a trace to mild amount of tricuspid regurgitation. There is mild pulmonary hypertension by echo. Right ventricular systolic pressure is estimated to be elevated at 30-40mmHg. Pulmonic Valve The pulmonic valve is not well seen, but is grossly normal. Great Vessels The aortic root is not well visualized but is probably normal size. The inferior vena cava was not well visualized. Effusions There is no pericardial effusion. : ZEUS BARAJAS > Zeus Barajas
--- NOTE | 2016-10-10 09:41 | PDOC DISCHARGE SUMMARY ---
General - Admit/Disc Date/PCP Admission Date/Primary Care Provider: 10/09/16 01:55 MULU CAPUTO MD Discharge Date: 10/10/16 - Discharge Diagnosis (1) Non-cardiac chest pain Is this a current diagnosis for this admission?: Yes (2) Hyperlipidemia Is this a current diagnosis for this admission?: Yes (3) Gastroesophageal reflux disease Is this a current diagnosis for this admission?: Yes (4) Anxiety and depression Is this a current diagnosis for this admission?: Yes (5) Hormone replacement therapy Is this a current diagnosis for this admission?: Yes (6) Obesity Is this a current diagnosis for this admission?: Yes - Additional Information Resuscitation Status: Full Code Discharge Diet: As Tolerated Discharge Activity: Activity As Tolerated Home Medications: Estrogens,Conjugated [Premarin 1.25 mg Tablet] 1.25 mg PO DAILY 10/09/16 Multivits-Min/Iron/FA/Lutein [Centrum Silver Women Tablet] 1 each PO DAILY 10/09 Rosuvastatin Calcium [Crestor 5 mg Tablet] 5 mg PO QHS #30 tablet 10/10/16 History of Present Illness Patient complains of: Chest pain History of Present Illness: CHIDI CARRION is a 50 year old female with a past medical history of anxiety osteoarthritis on hormone replacement who is in her usual state of health until approximately 72 hours prior to presentation having both sharp and dull pain to the left side of her chest which radiates to both the left jaw and arm and is intermittent in nature associated with opiate rotations, shortness of breath, nausea and vomiting of gastric content though occurring at rest. She is unable to identify alleviating or exacerbating factors she does admit some social stressors but states she is not currently exceptionally stressed and this is inconsistent with previous episode of panic attack. She denies new medications , recent cardiac stress test and is referred to the hospitalist for admission with an otherwise unremarkable workup. Hospital Course Hospital Course: The patient was observed in a continues telemetry unit, serial cardiac enzymes were obtained which were nonsuggestive. The patient's EKG revealed no acute changes and the patient had no events on monitoring and evaluation advisor. The patient underwent Cardiolite stress test. The patient had no EKG changes during her stress test. The patient was seen by cardiology during her stay and felt that her symptoms were musculoskeletal in origin given that they were reproducible on physical examination. The patient's been cleared for discharge from a cardiology perspective. The patient had normal LFTs. The patient had a normal CTA scan. The patient's symptoms improved significantly with a muscle relaxer. The patient can follow with primary care provider for noncardiac chest pain. Physical Exam Vital Signs: Temp Pulse Resp BP Pulse Ox 98.4 F 65 17 104/56 L 97 10/10/16 07:35 10/10/16 07:35 10/10/16 07:35 10/10/16 07:35 10/10/16 07:35 Intake & Output 10/08/16 10/09/16 10/10/16 23:59 23:59 23:59 Intake Total 960 Output Total 1 Balance 959 Weight 93.3 kg General appearance: PRESENT: no acute distress, cooperative, obese, well- developed Head exam: PRESENT: atraumatic, normocephalic Eye exam: PRESENT: conjunctiva pink, EOMI, PERRLA. ABSENT: scleral icterus Ear exam: PRESENT: normal external ear exam Mouth exam: PRESENT: moist, tongue midline Neck exam: ABSENT: carotid bruit, JVD, lymphadenopathy, thyromegaly Respiratory exam: PRESENT: clear to auscultation anthony. ABSENT: rales, rhonchi, wheezes Cardiovascular exam: PRESENT: RRR. ABSENT: diastolic murmur, rubs, systolic murmur Pulses: PRESENT: normal dorsalis pedis pul Vascular exam: PRESENT: normal capillary refill GI/Abdominal exam: PRESENT: normal bowel sounds, soft. ABSENT: distended, guarding, mass, organolmegaly, rebound, tenderness Rectal exam: PRESENT: deferred Extremities exam: PRESENT: full ROM. ABSENT: calf tenderness, clubbing, pedal edema Neurological exam: PRESENT: alert, awake, oriented to person, oriented to place , oriented to time, oriented to situation, CN II-XII grossly intact. ABSENT: motor sensory deficit Psychiatric exam: PRESENT: anxious, normal mood. ABSENT: homicidal ideation, suicidal ideation Skin exam: PRESENT: dry, intact, warm. ABSENT: cyanosis, rash Results Laboratory Results: 10/09/16 10/09/16 10/09/16 02:20 07:28 14:11 Creatine Kinase CK-MB (CK-2) 1.18 0.92 0.62 Troponin I < 0.012 < 0.012 < 0.012 10/10/16 10/10/16 05:13 06:15 Creatine Kinase 27 L CK-MB (CK-2) Troponin I < 0.012 Impressions: Chest X-Ray 10/08/16 20:06 IMPRESSION: NO ACUTE RADIOGRAPHIC FINDING IN THE CHEST. Chest/Abdomen CTA 10/09/16 00:00 IMPRESSION: NORMAL CTA OF THE CHEST. NO PULMONARY EMBOLI. Qualifiers PATEINT BEING DISCHARGED WITH ANY OF THE FOLLOWING DIAGNOSIS?: No Plan Discharge Plan: The patient is to followup with their primary care provider, Dr. see, within one week for hospital followup regarding noncardiac chest pain Time Spent: Less than 30 Minutes
[2016-10-10] MEDS ORDERED: (PENDING PHARMACY ID) (Multivits-Min/Iron/Fa/Lutein [Centrum Silver Women Tablet] 1 EACH) PO SCH (10:00)
[2016-10-10] MEDS ORDERED: MULTIVITAMIN TABLET PO SCH (10:00)
[2016-10-10] MEDS: LACTOBACILLUS ACIDOPHILUS 250 MG TAB PO SCH (10:18)
[2016-10-10] MEDS: ENALAPRIL MALEATE 2.5 MG TABLET PO SCH (10:25)
[2016-10-10] MEDS: DOCUSATE SODIUM 100 MG CAPSULE PO SCH (10:25)
--- NOTE | 2016-10-10 11:31 | PDOC PROGRESS REPORT ---
Subjective Progress Note for:: 10/10/16 Subjective:: Patient seems to be doing better with gradual improvement. Pt is denying any chest arm or neck discomfort. Patient denying any PND, orthopnea. Patient denied any sustained palpitations, dizziness, syncope, near syncope. Patient denying any fever chills. Patient denying any other significant discomfort. Patient is maintaining sinus rhythm. Review of systems: Rest review of systems negative. Medications: Medications have been reviewed. Physical Exam Vital Signs: Temp Pulse Resp BP Pulse Ox 98.4 F 65 17 104/56 L 97 10/10/16 10:24 10/10/16 10:24 10/10/16 10:24 10/10/16 10:24 10/10/16 10:24 Intake & Output 10/09/16 10/10/16 10/11/16 06:59 06:59 06:59 Intake Total 0 960 Output Total 1 Balance -1 960 Weight 93.3 kg Exam: GENERAL: well-nourished and in no acute distress. Alert and oriented x3 HEAD: Atraumatic, normocephalic. EYES: Pupils equal round and reactive to light, extraocular movements intact, sclera anicteric, conjunctiva are normal. ENT: TMs normal, nares patent, oropharynx clear without exudates. Moist mucous membranes. No oral ulcerations or bleeding gums noted NECK: supple without lymphadenopathy. Trachea is central. No cervical or axillary lymphadenopathy noted. Carotids are 2+, JVD WNL LUNGS: Respiration seems nonlabored, no significant accessory muscle action noted. Breath sounds clear to auscultation bilaterally and equal. No wheezes rales or rhonchi. No significant dullness noted on percussion. CHEST: Palpation of the chest wall shows mild chest wall tenderness but no other abnormalities. 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 ABDOMEN: Soft, no significant tenderness appreciated, normoactive bowel sounds. No guarding, no rebound. No rigidity noted . No masses appreciated. EXTREMITIES: Pedal pulses are 1-2+, no calf tenderness noted. No clubbing or cyanosis.trace to 1+ pedal edema noted NEUROLOGICAL: Focused neurological exam showed no significant neurologic deficit. Normal speech, no focal weakness appreciated. PSYCH: Normal mood, normal affect. Judgment and insight within normal limits. SKIN: No significant ecchymosis, rash, ulcerations or signs of pruritus noted. MUSCULOSKELETAL EXAM: No significant joint swelling noted. Results Laboratory Results: 10/09/16 10/09/16 10/09/16 02:20 07:28 14:11 Creatine Kinase CK-MB (CK-2) 1.18 0.92 0.62 Troponin I < 0.012 < 0.012 < 0.012 10/10/16 10/10/16 05:13 06:15 Creatine Kinase 27 L CK-MB (CK-2) Troponin I < 0.012 Impressions: Chest X-Ray 10/08/16 20:06 IMPRESSION: NO ACUTE RADIOGRAPHIC FINDING IN THE CHEST. Chest/Abdomen CTA 10/09/16 00:00 IMPRESSION: NORMAL CTA OF THE CHEST. NO PULMONARY EMBOLI. Assessment & Plan - Diagnosis (1) Chest pain Qualifiers: Chest pain type: unspecified Qualified Code(s): R07.9 - Chest pain, unspecified Is this a current diagnosis for this admission?: Yes (2) Dyslipidemia Is this a current diagnosis for this admission?: Yes (3) Anxiety and depression Is this a current diagnosis for this admission?: Yes (4) Obesity Qualifiers: Obesity severity: unspecified obesity severity Is this a current diagnosis for this admission?: Yes (5) Gastroesophageal reflux disease Qualifiers: Esophagitis presence: esophagitis presence not specified Qualified Code(s): K21.9 - Gastro-esophageal reflux disease without esophagitis Is this a current diagnosis for this admission?: Yes (6) Sleep disorder Is this a current diagnosis for this admission?: Yes - Notes Notes: Chest pain: So far patient has negative enzymes, negative EKG, negative stress test and no coronary calcification. There is overall well being support that patient chest pain is noncardiac. Patient being recommended aggressive risk factor modification. In this regard patient has been advised to schedule a sleep study, weight loss, statin therapy. Dyslipidemia: Continue statin therapy. Anxiety and depression: This can be evaluated further as an outpatient. Obesity: Patient has been advised in weight loss. Gastroesophageal reflux: Patient will benefit from dietary reflux measures this was explained. Sleep disorder: Patient has history of snoring. Patient will benefit from a sleep study. Nuclear stress test results were discussed with the patient. Patient was informed that no definitive evidence of pharmacologic stress-induced ischemia noted. No definite fixed defects were noted. Patient informed that occasionally significant single vessel disease or balanced ischemia could be missed. However based on the current study results, would recommend aggressive risk factor modification and medical therapy. It may also be worthwhile to consider evaluation or empiric management of other causes of chest pain. Should no other cause be found and if persistent in having chest pain, then cardiac catheterization should be considered. Right now, recommendations are for aggressive risk factor modification and medical management. CTA results were discussed. No coronary calcification was noted. 2-D echocardiogram results were discussed with the patient. Patient questions were answered. - Time Time with patient: Greater than 35 minutes - CODE STATUS was discussed, patient remains full code. Surrogate decision-maker unchanged. Multiple medical problems were addressed.More than 50% of the time spent coordinating care, discussing management plans with involved caregivers. Management plans discussed with involved personnels. Medical decision making was of moderate complexity.
== END 2016-10-10 11:10 | disposition home or self-care (01) ==
LOC: ER 20:00 → EH 10-09 01:38 → INTOOBSV 10-09 01:38 → UNDOADMOB 10-09 01:38 → EH 10-09 01:55 → 4N 10-09 04:22
PROVIDERS: ADMIT Internal Medicine; ATTEND Internal Medicine
DX: R07.9 Chest pain, unspecified (principal); E78.5 Hyperlipidemia, unspecified; K21.9 Gastro-esophageal reflux disease without esophagitis; F41.8 Other specified anxiety disorders; Z79.890 Hormone replacement therapy; E66.9 Obesity, unspecified; M19.90 Unspecified osteoarthritis, unspecified site; Z82.49 Family history of ischemic heart disease and other diseases of the circulatory system; G47.9 Sleep disorder, unspecified
CPT/HCPCS: 93005 ×2; 99285; 36415 ×3; 82553 ×2; 82550 ×2; 84443; 85025; 80053; 84484 ×3; 85379; 80061; 93306; 93017; 71010; 78452; 71275; 93010 ×2; G0378 ×3; A9500; J2785; J1644; J3490 ×2; J0280; Q9969

== ENCOUNTER 2017-05-06 18:42 | Emergency (ER) | payer BC ==
[2017-05-06] MEDS ORDERED: NORMAL SALINE 1000 ML 1,000 ML IV ONE (20:28)
[2017-05-06] MEDS ORDERED: ONDANSETRON HCL INJ/PF 4 MG/2 ML SDV IV ONE (20:28)
[2017-05-06] MEDS ORDERED: MORPHINE SULFATE 10 MG/ML INJ IV ONE (20:28)
--- NOTE | 2017-05-06 20:30 | ER Document Report ---
ED GI/ - General Chief Complaint: Abdominal Pain Stated Complaint: ABDOMINAL PAIN, RIGHT SIDE PAIN Time Seen by Provider: 05/06/17 19:47 Notes: Patient is a 51-year-old female that comes emergency department for chief complaint of right lower abdominal pain that started this afternoon. It has gradually worsened and it is sharp, she states it feels like it is radiating around her left side. She denies specific flank pain. She reports nausea but denies vomiting. She denies fever or chills, dysuria, vaginal discharge or bleeding. She has had an appendectomy, total hysterectomy. She has a past medical history of kidney stones including a large one with removal. Unsure of how it was removed now. No daily medications. Has not had a colonoscopy. TRAVEL OUTSIDE OF THE [place] IN LAST 30 DAYS: No - Related Data Allergies/Adverse Reactions: oxycodone HCl [From Percocet] Allergy (Verified 05/06/17 20:29) Past Medical History - General Information source: Patient - Social History Smoking Status: Never Smoker Frequency of alcohol use: None Drug Abuse: None Lives with: Family Family History: CAD - Past Medical History Cardiac Medical History: Reports: Hx Hypercholesterolemia Denies: Hx Congestive Heart Failure, Hx Coronary Artery Disease, Hx Heart Attack, Hx Hypertension Pulmonary Medical History: Reports: Hx Pneumonia - yrs ago Denies: Hx Asthma - being ruled out;may be panic attacks, Hx Bronchitis, Hx COPD, Hx Tuberculosis Neurological Medical History: Denies: Hx Cerebrovascular Accident, Hx Seizures Renal/ Medical History: Reports: Hx Kidney Stones. Denies: Hx End Stage Renal Disease, Hx Peritoneal Dialysis GI Medical History: Reports: Hx Hiatal Hernia. Denies: Hx Cirrhosis, Hx Gastroesophageal Reflux Disease, Hx Ulcer Musculoskeltal Medical History: Reports Hx Arthritis - Knees, hands, feet, neck , Denies Hx Multiple Sclerosis Psychiatric Medical History: Denies: Hx Bipolar Disorder, Hx Depression, Hx Schizophrenia Past Surgical History: Reports: Hx Hysterectomy - Immunizations Hx Diphtheria, Pertussis, Tetanus Vaccination: Yes Review of Systems - Review of Systems Constitutional: No symptoms reported EENT: No symptoms reported Cardiovascular: No symptoms reported Respiratory: No symptoms reported Gastrointestinal: See HPI Genitourinary: See HPI Female Genitourinary: No symptoms reported Musculoskeletal: No symptoms reported Skin: No symptoms reported Hematologic/Lymphatic: No symptoms reported Neurological/Psychological: No symptoms reported Physical Exam - Vital signs Vitals: Temp Pulse Resp BP Pulse Ox 97.7 F 76 16 127/77 H 97 05/06/17 18:47 05/06/17 18:47 05/06/17 18:47 05/06/17 18:47 05/06/17 18:47 Interpretation: Normal - General General appearance: Alert - patient appears mildly uncomfortable In distress: None - HEENT Head: Normocephalic, Atraumatic Eyes: Normal Conjunctiva: Normal Extraocular movements intact: Yes Eyelashes: Normal Pupils: PERRL Nasal: Normal Mouth/Lips: Normal Mucous membranes: Normal Pharynx: Normal Neck: Normal - Respiratory Respiratory status: No respiratory distress Chest status: Nontender Breath sounds: Normal. No: Decreased air movement, Wheezing Chest palpation: Normal - Cardiovascular Rhythm: Regular. No: Tachycardia Heart sounds: Normal auscultation, S1 appreciated, S2 appreciated Murmur: No - Abdominal Inspection: Normal Distension: No distension Bowel sounds: Normal Tenderness: Tender - tender in mid to right lower abdomen; remaining abdomen shows minimal non-specific tenderness with no guarding or rigidity Organomegaly: No organomegaly - Back Back: Normal, Nontender. No: Tender, CVA tenderness - Extremities General upper extremity: Normal inspection, Nontender, Normal strength, Normal temperature General lower extremity: Normal inspection, Nontender, Normal strength, Normal temperature - Neurological Neuro grossly intact: Yes Cognition: Normal Orientation: AAOx4 [place]ath Coma Scale Eye Opening: Spontaneous [place] Coma Scale Verbal: Oriented Sharath Coma Scale Motor: Obeys Commands [place] Coma Scale Total: 15 Speech: Normal Motor strength normal: LUE, RUE, LLE, RLE Sensory: Normal - Psychological Associated symptoms: Normal affect, Normal mood - Skin Skin Temperature: Warm Skin Moisture: Dry Skin Color: Normal Course - Re-evaluation Re-evalutation: CBC, CMP unremarkable. Urinalysis has still not been obtained. I discussed with patient her normal labs, discussed with her because of her appendectomy and total hysterectomy that I have a lower suspicion of concerning intra- abdominal life-threatening pathology. She states she still would like a CAT scan to rule out a stone. I discussed pros and cons, patient still wants scan. On request this was performed. Urinalysis is normal. CAT scan showing gallstone with no concerning gallbladder pathology. Pain is all in the lower quadrants. No CVA tenderness on exam. On looking at the cat scan there is stool retention. Because there is no urinary source, I do suspect a bowel source. No evidence of perforation. Discussed with patient in detail. Patient will be given magnesium citrate, Colace, instructions for taking these, she also asks for Toradol for pain, this was provided. Discussed results in detail, recommendations, follow-up, return precautions. Patient states satisfaction and agreement. - Vital Signs Vital signs: Temp Pulse Resp BP Pulse Ox 97.7 F 76 16 105/60 97 05/06/17 18:47 05/06/17 18:47 05/06/17 18:47 05/06/17 23:02 05/06/17 23:45 - Laboratory Result Diagrams: 05/06/17 20:42 05/06/17 20:42 Discharge - Discharge Clinical Impression: Abdominal pain Qualifiers: Abdominal location: lower abdomen, unspecified Qualified Code(s): R10.30 - Lower abdominal pain, unspecified Condition: Stable Disposition: HOME, SELF-CARE Additional Instructions: No stones are seen in your kidney or in your urinary tract. There is a small gallstone, follow-up with the surgical referral for management of this because of your intermittent upper abdominal symptoms. I believe the discomfort you are having is because of your bowel and this needs to be cleansed. Take one half of the magnesium citrate, if needed take the other half, if needed to begin the stool softener. Eat plenty of fiber, stay hydrated, take the Toradol with food if needed for pain. Take the nausea medication if needed. Return to emergency department for any concerning or worsening symptoms including return or worsening pain, vomiting, fever, etc. Prescriptions: Ketorolac Tromethamine [Toradol 10 mg Tablet] 10 mg PO Q8HP PRN #12 tablet PRN Reason: Docusate Sodium [Colace 100 mg Capsule] 100 mg PO DAILY #30 capsule Ondansetron [Zofran Odt 4 mg Tablet] 1 - 2 tab PO Q4H PRN #15 tab.rapdis PRN Reason: For Nausea/Vomiting Forms: Return to Work Referrals: [facility] [Provider Group] - Follow up as needed
[2017-05-06 21:03] LABS: ABSOLUTE EOSINOPHILS # (AUTO) 0.1 10^3/uL (0.0-0.6); ABSOLUTE LYMPHOCYTES (AUTO) 2.9 10^3/uL (0.5-4.7); ABSOLUTE MONOCYTES (AUTO) 0.7 10^3/uL (0.1-1.4); ABSOLUTE NEUT (AUTO) 4.8 10^3/uL (1.7-8.2); BASOPHILS % (AUTO) 0.4 % (0-2); HEMATOCRIT 36.1 % (36.0-47.0); HGB HCT DIFFERENCE -0.1; LYMPHOCYTES % (AUTO) 34.6 % (13-45); MEAN CORPUSCULAR HEMOGLOBIN 27.1 pg (27.0-33.4); MEAN CORPUSCULAR HGB CONC 33.2 g/dL (32.0-36.0); MEAN CORPUSCULAR VOLUME 82 fl (80-97); MONOCYTES % (AUTO) 7.8 % (3-13); RED BLOOD COUNT 4.42 10^6/uL (3.72-5.28); RED CELL DISTRIBUTION WIDTH 13.3 % (11.5-14.0); SEGMENTED NEUTROPHILS % (AUTO) 56.2 % (42-78); WHITE BLOOD COUNT 8.5 10^3/uL (4.0-10.5)
[2017-05-06 21:07] LABS: ALANINE AMINOTRANSFERASE 25 U/L (9-52); ALBUMIN 3.7 g/dL (3.5-5.0); ALKALINE PHOSPHATASE 111 U/L (38-126); ANION GAP 9 (5-19); ASPARTATE AMINO TRANSFERASE 16 U/L (14-36); BILIRUBIN,DIRECT 0.3 mg/dL (0.0-0.4); BILIRUBIN,TOTAL 0.3 mg/dL (0.2-1.3); BLOOD UREA NITROGEN 15 mg/dL (7-20); CALCIUM 9.1 mg/dL (8.4-10.2); CARBON DIOXIDE 26 mmol/L (22-30); CHLORIDE 105 mmol/L (98-107); CREATININE RESULT 0.75 mg/dL (0.52-1.25); GLUCOSE 98 mg/dL (75-110); POTASSIUM 4.3 mmol/L (3.6-5.0); SODIUM 139.7 mmol/L (137-145); TOTAL PROTEIN 6.8 g/dL (6.3-8.2)
[2017-05-06 22:24] LABS: APPEARANCE,URINE CLEAR; BILIRUBIN,URINE NEGATIVE (NEGATIVE); GLUCOSE, URINE NEGATIVE (NEGATIVE); KETONES,URINE NEGATIVE (NEGATIVE); LEUKOCYTE ESTERASE,URINE NEGATIVE (NEGATIVE); NITRITE,URINE NEGATIVE (NEGATIVE); PROTEIN,URINE NEGATIVE (NEGATIVE); URINE SPECIFIC GRAVITY 1.017; UROBILINOGEN,URINE NEGATIVE mg/dL (<2.0)
--- NOTE | 2017-05-06 23:24 | RADIOLOGY REPORT (SQ) ---
EXAM DESCRIPTION: CT LTD RENAL STONE PROTOCOL ON COMPLETED DATE/TIME: 05/06/2017 10:17 pm REASON FOR STUDY: right abd/flank pain, nausea COMPARISON: None. TECHNIQUE: CT scan of the abdomen and pelvis performed without intravenous or oral contrast. Images reviewed with lung, soft tissue, and bone windows. Reconstructed coronal and sagittal MPR images revi ewed. All images stored on PACS. All CT scanners at this facility use dose modulation, iterative reconstruction, and/or weight based d osing when appropriate to reduce radiation dose to as low as reasonably achievable (ALARA). [facility]: Dose Right [facility]: CareDose [facility]: Dose Right [facility]: Teradose 4D [facility]: OptMed RADIATION DOSE: Up-to-date CT equipment and radiation dose reduction techniques were employed. CTDIv ol: 17.7 mGy. DLP: 955 mGy-cm.mGy. LIMITATIONS: None. FINDINGS: LOWER CHEST: No significant findings. No nodules or infiltrates. NON-CONTRASTED LIVER, SPLEEN, ADRENALS: Evaluation limited by lack of IV contrast. No identified sign ificant masses. PANCREAS: No masses. No peripancreatic inflammatory changes. GALLBLADDER: Tiny gallstone is identified. No inflammatory changes to suggest cholecystitis. RIGHT KIDNEY AND URETER: No suspicious masses. Assessment limited by lack of IV contrast. No signif icant calcifications. No hydronephrosis or hydroureter. LEFT KIDNEY AND URETER: No suspicious masses. Assessment limited by lack of IV contrast. No signifi cant calcifications. No hydronephrosis or hydroureter. AORTA AND RETROPERITONEUM: No aneurysm. No retroperitoneal masses or adenopathy. BOWEL AND PERITONEAL CAVITY: No obvious masses or inflammatory changes. No free fluid. APPENDIX: Not identified PELVIS, BLADDER, AND ABDOMINAL WALL:No abnormal masses. No free fluid. Bladder normal. BONES: No significant findings. OTHER: No other significant finding. IMPRESSION: Tiny gallstone is identified. No renal ureteric calculi are identified. Other findings as noted above TECHNICAL DOCUMENTATION: JOB ID: [id number] Quality ID # [id number]: Final reports with documentation of one or more dose reduction techniques (e.g., Au tomated exposure control, adjustment of the mA and/or kV according to patient size, use of iterative reconstruction technique) 2010 [employer]- All Rights Reserved
[2017-05-06] MEDS ORDERED: ONDANSETRON ODT 4 MG TAB (6 TAB/DSPK) PO PRN (23:31)
[2017-05-06] MEDS ORDERED: MAGNESIUM CITRATE 296 ML BOTTLE PO ONE (23:31)
[2017-05-06 23:55] VITALS: BP 105/60
== END 2017-05-07 00:15 | disposition home or self-care (01) ==
LOC: ER 18:42
DX: R10.30 Lower abdominal pain, unspecified (principal); R10.9 Unspecified abdominal pain; R51 Headache
CPT/HCPCS: 99284; 96361; 96374; 96375; 36415; 85025; 80053; 81001; 76380; J3490; J2270; J2405; J7030

== ENCOUNTER 2017-05-17 06:53 | Day surgery (SDC) | payer BC ==
--- NOTE | 2017-05-16 13:53 | EKG REPORT ---
SEVERITY:- NORMAL ECG - SINUS RHYTHM : Confirmed by: Bo Guerrero MD 16-May-2017 13:52:27
[~2017-05-17 06:53] MED LIST: ACETAMINOPHEN 325 MG TABLET PO PRN; BUPIVACAINE HCL 0.25 % INJ/PF (2.5 MG/1 ML) 30 ML VIAL ONE; CEFAZOLIN 1 GM/D5W RTU 1 GM/50 ML RTUPB IV PRN; LACTATED RINGERS 1000 ML IV PRN; LIDOCAINE 0.5% INJ-PF (5 MG/ML) 50 ML SDV SUBCUT PRN
[2017-05-17] MEDS ORDERED: LIDOCAINE 2% INJ-PF (100 MG/5 ML) SYRINGE ONE (06:55)
[2017-05-17] MEDS ORDERED: FENTANYL CITRATE INJ/PF 250 MCG/5 ML AMPULE ONE (07:52)
[2017-05-17] MEDS ORDERED: MORPHINE SULFATE 10 MG/ML INJ ONE (07:53)
[2017-05-17] MEDS ORDERED: PROPOFOL INJ 200 MG/20 ML VIAL IV ONE (07:53)
[2017-05-17] MEDS ORDERED: MIDAZOLAM 2 MG/2 ML INJ ONE (07:53)
[2017-05-17] MEDS ORDERED: ACETAMINOPHEN 100 ML IV ONE (07:53)
[2017-05-17] MEDS ORDERED: FENTANYL CITRATE INJ/PF 100 MCG/2 ML AMPUL ONE (07:53)
[2017-05-17] MEDS ORDERED: MORPHINE SULFATE 10 MG/ML INJ IV PRN (08:31)
[2017-05-17] MEDS ORDERED: PROMETHAZINE HCL INJ 25 MG/1 ML VIAL IV PRN ×2 (08:31)
[2017-05-17] MEDS ORDERED: MEPERIDINE HCL/PF INJ 25 MG/1 ML DISP.SYRIN IV PRN (08:31)
[2017-05-17] MEDS ORDERED: FENTANYL CITRATE INJ/PF 100 MCG/2 ML AMPUL IV PRN ×3 (08:31)
[2017-05-17] MEDS ORDERED: DIPHENHYDRAMINE HCL 50 MG/ML VIAL IV PRN (08:31)
[2017-05-17] MEDS: PROMETHAZINE HCL INJ 25 MG/1 ML VIAL ONE ×2 (09:05→09:20)
--- NOTE | 2017-05-17 09:06 | OPERATIVE REPORT E ---
Operative Report NAME: CHIDI CARRION : 1965 AGE: 51Y DATE OF SURGERY: 05/17/2017 ROOM: PREOPERATIVE DIAGNOSIS: SYMPTOMATIC CHOLELITHIASIS AND CHOLECYSTIS. POSTOPERATIVE DIAGNOSES: 1. SYMPTOMATIC CHOLELITHIASIS AND CHOLECYSTIS. 2. INTRAABDOMINAL ADHESIONS. OPERATION: 1. Laparoscopic lysis of adhesions. 2. Laparoscopic cholecystectomy. SURGEON: HUA GALLEGOS M.D. ANESTHESIA: General. COMPLICATIONS: None. ESTIMATED BLOOD LOSS: Scant. DRAINS: None. TISSUE REMOVED: One gallbladder with contents. SUMMARY OF OPERATION: The patient was The patient was taken to the preoperative holding area of the main operating room where general anesthesia was induced. The abdomen was exposed, prepped and draped in sterile fashion, and instrumentation was set up for laparoscopic cholecystectomy. The surgical plan and a surgical time out are conducted. Skin was anesthetized with 0.25% Marcaine. A supraumbilical vertical incision was made with a knife. Veress needle inserted into the peritoneal cavity and a pneumoperitoneum was established. Veress needle was removed, a 5 mm port was inserted and a 5 mm flexible scope was inserted. Under direct visualization, 3 additional ports were placed in the subxiphoid and subcostal positions. There were significant adhesions between the right lip of the liver and the anterior abdominal wall. These were taken down using a combination of sharp and electrocautery dissection. Once this was achieved, we were able to reflect the reflect the gallbladder up over the liver bed. The neck of the gallbladder at its junction with the cystic duct, was dissected out. The anatomy here was classic. Cystic artery was branching and was dissected out in the [place]. Photographs were taken. The cystic artery was clipped proximally, distally, and divided with scissors. We now have the critical view obtained. Cystic duct was of normal caliber. It was milked of any possible stones; clipped twice proximally, once distally; and divided with scissors. The gallbladder is removed from the liver bed using hook cautery resection and brought out of the patient through the supraumbilical port-site. We returned to the peritoneal cavity, checked for bleeding. There was none. Clips were appropriately secured on the cystic artery and cystic duct stumps respectively. There was no evidence of bleeding or bile leak. We felt the operation was correct. Sponge and needle counts correct. All ports removed under direct visualization. Pneumoperitoneum evacuated and wounds closed with 3-0 Vicryl and 0-Vicryl above the umbilicus. Benzoin and Steri-Strips applied. Patient tolerated the procedure well, extubated and taken to recovery in stable condition. DICTATING PHYSICIAN: HUA GALLEGOS M.D. [id number] PHY#: [id number] ID: [id number] JOB#: [id number] ACCT: [id number] cc:HUA GALLEGOS M.D. > [facility] CENTERMarvin
[2017-05-17] MEDS ORDERED: LIDOCAINE 2% INJ-PF (20 MG/ML) 10 ML AMPUL ONE (09:13)
[2017-05-17] MEDS ORDERED: SUCCINYLCHOLINE CHLORIDE INJ 200 MG/10 ML VIAL ONE (09:13)
[2017-05-17] MEDS ORDERED: DEXAMETHASONE SOD PHOSPHATE INJ 4 MG/1 ML VIAL ONE (09:13)
[2017-05-17] MEDS ORDERED: ONDANSETRON HCL INJ/PF 4 MG/2 ML SDV ONE (09:13)
[2017-05-17] MEDS ORDERED: KETOROLAC TROMETHAMINE 60 MG/2 ML SDV ONE (09:13)
[2017-05-17] MEDS ORDERED: GLYCOPYRROLATE INJ 0.4 MG/2 ML VIAL ONE (09:13)
[2017-05-17] MEDS ORDERED: ROCURONIUM BROMIDE INJ 50 MG/5 ML VIAL IV ONE (09:13)
[2017-05-17 11:54] VITALS: BP 118/74
--- NOTE | 2017-05-17 17:47 | RADIOLOGY REPORT (SQ) ---
EXAM DESCRIPTION: CHEST PA/LATERAL COMPLETED DATE/TIME: 05/16/2017 10:49 am REASON FOR STUDY: PRE-OP COMPARISON: CT angio chest 10/09/2016 EXAM PARAMETERS: NUMBER OF VIEWS: two views TECHNIQUE: Digital Frontal and Lateral radiographic views of the chest acquired. RADIATION DOSE: NA LIMITATIONS: none FINDINGS: LUNGS AND PLEURA: No opacities, masses or pneumothorax. No pleural effusion. MEDIASTINUM AND HILAR STRUCTURES: No masses or contour abnormalities. HEART AND VASCULAR STRUCTURES: Heart normal size. No evidence for failure. BONES: No acute findings. HARDWARE: None in the chest. OTHER: No other significant finding. IMPRESSION: NO SIGNIFICANT RADIOGRAPHIC FINDING IN THE CHEST. TECHNICAL DOCUMENTATION: JOB ID: [id number] [employer]- All Rights Reserved
--- NOTE | 2017-05-20 21:27 | DISCHARGE SUMMARY E ---
Discharge Summary NAME: CHIDI CARRION : 1965 AGE: 51Y ADMITTED: 05/17/2017 DISCHARGED: 05/17/2017 SUMMARY OF HOSPITALIZATION: The patient is a 51-year-old female with symptomatic cholelithiasis. She is brought to ambulatory surgery for interval laparoscopic cholecystectomy. The procedure performed is dictated separately. She has no postoperative complications and the afternoon of the operative day she was discharged home. FINAL DIAGNOSIS: Chronic cholelithiasis and cholelithiasis, status post laparoscopic cholecystectomy by Dr. Tolliver. DISPOSITION: The patient is discharged home in the care of family. Followup with Dr. Tolliver in approximately 2 weeks. Resume preoperative medications, diet and activity. She will be given a prescription for pain medication. DICTATING PHYSICIAN: HUA TOLLIVER M.D. [id number] PHY#: [id number] ID: [id number] JOB#: [id number] ACCT: [id number] cc:HUA TOLLIVER M.D. >
== END 2017-05-17 11:45 | disposition home or self-care (01) ==
LOC: OROUT 06:53
PROVIDERS: ATTEND Surgery
PROC: 0FT44ZZ Resection of Gallbladder, Percutaneous Endoscopic Approach (ICD-10-PCS; principal; 2017-05-17 09:00)
DX: K80.20 Calculus of gallbladder without cholecystitis without obstruction (principal); Z88.5 Allergy status to narcotic agent; M19.90 Unspecified osteoarthritis, unspecified site; J45.909 Unspecified asthma, uncomplicated; Z79.82 Long term (current) use of aspirin; Z87.442 Personal history of urinary calculi; R07.9 Chest pain, unspecified; F41.9 Anxiety disorder, unspecified; Z87.891 Personal history of nicotine dependence; K80.10 Calculus of gallbladder with chronic cholecystitis without obstruction
CPT/HCPCS: 93005; 88304 ×2; 71020; 93010; 47562; J2250; J0690; J3490 ×2; J1100; J1885; J3010; J2001; J2550; J0330; J2405; J2704; J0131; 790; J2270

== ENCOUNTER 2019-02-10 19:33 | Emergency (ER) | payer BC | END 2019-02-10 19:49 | disposition left against medical advice (07) | LOC: ER 19:33 | DX: Z53.21 Procedure and treatment not carried out due to patient leaving prior to being seen by health care provider (principal) ==

== ENCOUNTER → 2019-03-18 | Outpatient (CLI) | payer BC ==
[2019-03-18 12:46] LABS: APPEARANCE,URINE SLIGHTLY-CLOUDY; BILIRUBIN,URINE NEGATIVE (NEGATIVE); COLOR,URINE YELLOW; GLUCOSE, URINE NEGATIVE (NEGATIVE); KETONES,URINE NEGATIVE (NEGATIVE); LEUKOCYTE ESTERASE,URINE NEGATIVE (NEGATIVE); NITRITE,URINE NEGATIVE (NEGATIVE); PROTEIN,URINE NEGATIVE (NEGATIVE); URINE SPECIFIC GRAVITY 1.013; UROBILINOGEN,URINE NEGATIVE mg/dL (<2.0)
[2019-03-18 13:07] LABS: ANION GAP 8 (5-19); BLOOD UREA NITROGEN 14 mg/dL (7-20); CALCIUM 9.5 mg/dL (8.4-10.2); CARBON DIOXIDE 27 mmol/L (22-30); CHLORIDE 103 mmol/L (98-107); GLUCOSE 81 mg/dL (75-110); POTASSIUM 4.6 mmol/L (3.6-5.0); SODIUM 138.3 mmol/L (137-145)
== END ==
LOC: OD 12:00
PROVIDERS: ATTEND Internal Medicine Nephrology
DX: N28.1 Cyst of kidney, acquired (principal)
CPT/HCPCS: 36415; 80048; 81001

== ENCOUNTER → 2019-06-16 | Outpatient (CLI) | payer BC ==
--- NOTE | 2019-06-16 08:31 | WOMENS IMAGING REPORT ---
EXAM DESCRIPTION: U/S ABDOMEN LIMITED COMPLETED DATE/TIME: 06/16/2019 8:22 am REASON FOR STUDY: R94.5 ABNORMAL RESULTS OF LIVER FUNCTION STUDIES R94.5 ABNORMAL RESULTS OF LIVER FUNCTION STUDIES COMPARISON: None. TECHNIQUE: Dynamic and static grayscale images acquired of the abdomen and recorded on PACS. Additio nal selected color Doppler and spectral images recorded. LIMITATIONS: None. FINDINGS: PANCREAS: The head and by the pancreas are unremarkable. The tail is obscured by overlyin g bowel gas. LIVER: The liver is echogenic consistent with fatty infiltration. LIVER VASCULATURE: Normal directional flow of the main portal vein and hepatic veins. GALLBLADDER: Prior cholecystectomy. ULTRASOUND-DETECTED ELLISON'S SIGN: Not applicable. INTRAHEPATIC DUCTS AND COMMON DUCT: CBD and intrahepatic ducts normal caliber. No filling defects. INFERIOR VENA CAVA: Patent. Limited visualization. AORTA: Limited visualization. No aneurysm is identified in the visualized portions. RIGHT KIDNEY: Normal size. Normal echogenicity. No solid or suspicious masses. No hydronephrosis. No calcifications. PERITONEAL AND RIGHT PLEURAL SPACE: No ascites or effusions. OTHER: No other significant findings. IMPRESSION: Fatty infiltrated liver. Prior cholecystectomy. No acute findings. TECHNICAL DOCUMENTATION: JOB ID: [id number] [employer]- All Rights Reserved Reading location - IP/workstation name: [email or web address]
== END ==
LOC: WI 07:45
PROVIDERS: ATTEND Internal Medicine Gastroenterology
DX: K76.0 Fatty (change of) liver, not elsewhere classified (principal); R94.5 Abnormal results of liver function studies
CPT/HCPCS: 76705